=== PATIENT | female | born 1990 | race Hispanic/Latino ===

== ENCOUNTER 2020-12-31 22:00 | Day surgery (SDC) | payer SELFPAY ==
[2020-12-31 22:48] VITALS: BMI 40.3
== END 2020-12-31 23:34 | disposition home or self-care (01) ==
LOC: CSHLD/OP 22:00
PROVIDERS: ATTEND Student in an Organized Health Care Education/Training Program
DX: O26.893 Other specified pregnancy related conditions, third trimester (principal); M79.89 Other specified soft tissue disorders; O34.211 Maternal care for low transverse scar from previous cesarean delivery; Z3A.37 37 weeks gestation of pregnancy
CPT/HCPCS: 99282

== ENCOUNTER 2024-03-05 13:07 | Day surgery (SDC) | payer OTHER ==
[2024-03-05] MEDS: Betamet Acet/Betamet Na Ph 30 MG/5 ML VIAL IM SCH (13:35)
== END 2024-03-05 13:42 | disposition home or self-care (01) ==
LOC: CSHLD/OP 13:07
PROVIDERS: ATTEND Family Medicine
DX: Z04.89 Encounter for examination and observation for other specified reasons (principal)
CPT/HCPCS: 96372; 99281; J0702